=== PATIENT | female | born 1955 | race Two or more races ===

== ENCOUNTER → 2021-09-05 | Outpatient (CLI) | payer MEDICAID | LOC: M WHC 14:20 | PROVIDERS: ATTEND Nurse Practitioner Family | DX: N64.4 Mastodynia (principal) | CPT/HCPCS: 76642; 77066; G0279 ==

== ENCOUNTER → 2021-10-02 | Outpatient (CLI) | payer MEDICAID | LOC: M LAB 14:42 → M RAD 14:42 | PROVIDERS: ATTEND Nurse Practitioner Family | DX: M54.50 Low back pain, unspecified (principal); M25.562 Pain in left knee; M25.511 Pain in right shoulder ==

== ENCOUNTER → 2021-10-27 | Outpatient (CLI) | payer MEDICAID | LOC: M WHC 11:04 | PROVIDERS: ATTEND Nurse Practitioner Family | DX: Z13.820 Encounter for screening for osteoporosis (principal); M85.89 Other specified disorders of bone density and structure, multiple sites ==

== ENCOUNTER 2021-11-20 12:20 | Outpatient (RCR) | payer MEDICAID ==
[2021-12-04] MEDS ORDERED: DICL1GEL3 TOP (11:03)
[2021-12-04] MEDS ORDERED: DOCU100C16 PO (11:03)
[2021-12-04] MEDS ORDERED: ACET-683 PO (11:03)
[2021-12-04] MEDS ORDERED: MELO7.5T35 PO (11:03)
== END 2021-12-01 ==
LOC: M PT 12:20
PROVIDERS: ATTEND Orthopaedic Surgery
DX: M13.862 Other specified arthritis, left knee (principal)

== ENCOUNTER → 2021-12-08 | Outpatient (CLI) | payer MEDICAID ==
[~2021-12-08] MED LIST: ACET-683 PO; DICL1GEL3 TOP; DOCU100C16 PO; MELO7.5T35 PO
[2021-12-08 12:05] LABS: BASO % 0.8 % (0.0-1.0); EOS # 0.1 10^3/uL (0.0-0.5); EOS % 1.6 % (0.0-3.0); HEMATOCRIT 38.1 % (36.0-47.0); LYMPH # 2.3 10^3/uL (1.5-5.0); LYMPH % 46.8 % (24.0-44.0); MEAN CORPUSCULAR HEMOGLOBIN 28.1 pg (27.0-33.0); MEAN CORPUSCULAR HGB CONC 31.5 g/dl (32.0-36.5); MEAN CORPUSCULAR VOLUME 89.2 fl (80.0-96.0); MONO # 0.5 10^3/uL (0.0-0.8); NEUTROPHILS % 40.8 % (36.0-66.0); PLATELET COUNT, AUTOMATED 144 10^3/uL (150-450); RED BLOOD COUNT 4.27 10^6/uL (4.00-5.40); WHITE BLOOD COUNT 4.9 10^3/uL (4.0-10.0)
[2021-12-08 12:52] LABS: ALBUMIN 3.7 GM/DL (3.2-5.2); ALT/SGPT 16 U/L (12-78); BILIRUBIN,TOTAL 0.7 MG/DL (0.2-1.0); BLOOD UREA NITROGEN 16 MG/DL (7-18); CALCIUM LEVEL 9.3 MG/DL (8.8-10.2); CARBON DIOXIDE LEVEL 29 MEQ/L (21-32); CHLORIDE LEVEL 108 MEQ/L (98-107); GLOMERULAR FILTRATION RATE > 60.0 (>45); GLUCOSE, FASTING 96 MG/DL (70-100); POTASSIUM SERUM 4.1 MEQ/L (3.5-5.1); SODIUM LEVEL 141 MEQ/L (136-145); TOTAL PROTEIN 7.2 GM/DL (6.4-8.2)
== END ==
LOC: M EKG 10:59
PROVIDERS: ATTEND Nurse Practitioner Family
DX: Z01.818 Encounter for other preprocedural examination (principal); Z79.899 Other long term (current) drug therapy

== ENCOUNTER → 2021-12-13 | Outpatient (CLI) | payer MEDICAID | LOC: M LABSMTC 10:21 | PROVIDERS: ATTEND Anesthesiology | DX: Z01.812 Encounter for preprocedural laboratory examination (principal); Z11.52 Encounter for screening for COVID-19 ==

== ENCOUNTER 2021-12-18 06:00 | Inpatient (IN) | payer MEDICAID ==
[~2021-12-18] VITALS: Ht 167.6 cm; Wt 104.8 kg
[2021-12-18] VITALS (8 sets, daily range): BP systolic 120–150; BP diastolic 58–71
[~2021-12-18 06:00] MED LIST changes: +ROPIVA 100MG/KETOR 15MG/EPINEPHRINE 0.3MG IN NS 50ML SYRINGE PA ONE; +TRANEXAMIC ACID 100 MG/ML 10ML VIAL IV ONE; +ceFAZolin SOD 2 GM in IV 1 EA IV ONE; +oxyCODONE 5MG TAB PO ONE
[2021-12-18] MEDS ORDERED: LR 1,000 ML IV SCH ×2 (06:35→11:15)
[2021-12-18] MEDS ORDERED: fentaNYL 100 MCG/2 ML INJECTION As Ordered ONE ×2 (07:04→08:16)
[2021-12-18] MEDS ORDERED: MIDAZOLAM INJ 2MG/2ML VIAL (J2250 PER 1MG) As Ordered ONE (07:04)
[2021-12-18] MEDS ORDERED: propofoL 200 MG/20 ML VIAL As Ordered ONE (07:05)
[2021-12-18] MEDS ORDERED: dexameTHASONE 4 MG/ML 1ML VIAL (J1100 PER 1MG) As Ordered ONE (07:05)
[2021-12-18] MEDS ORDERED: LIDOCAINE 2% 100MG/5ML SDV (FOR ANES.) As Ordered ONE (07:05)
[2021-12-18] MEDS ORDERED: ONDANSETRON 4MG 2ML VIAL As Ordered ONE (07:05)
[2021-12-18] MEDS ORDERED: TRANEXAMIC ACID 100 MG/ML 10ML VIAL As Ordered ONE (07:12)
[2021-12-18] MEDS ORDERED: LABETALOL 100MG/20ML VIAL As Ordered ONE ×2 (07:44→08:21)
[2021-12-18] MEDS ORDERED: ACETAMINOPHEN 1000MG 100ML IV BTL (OFIRMEV) (J0131 PER 10MG) As Ordered ONE (08:04)
[2021-12-18] MEDS ORDERED: VANCOMYCIN 1000MG/20ML VIAL As Ordered ONE (08:04)
[2021-12-18] MEDS ORDERED: HYDROmorphone HCL 2MG/ML 1ML VIAL As Ordered ONE (08:19)
[2021-12-18] MEDS ORDERED: SUGAMMADEX SODIUM 500 MG/5 ML VIAL (BRIDION) As Ordered ONE (08:22)
[2021-12-18] MEDS ORDERED: ROCURONIUM BROMIDE 50 MG/5 ML VIAL As Ordered ONE ×2 (08:50→10:16)
[2021-12-18] MEDS ORDERED: ePHEDrine SULFATE 25 MG/5 ML(5MG/ML) SYRINGE As Ordered ONE (09:30)
[2021-12-18] MEDS ORDERED: NS 1,000 ML IV SCH (11:00)
[2021-12-18] MEDS ORDERED: ACETAMINOPHEN TAB 650MG DOSE (2X325MG) PO PRN (11:00)
[2021-12-18] MEDS ORDERED: MORPHINE 4 MG/ML 1ML VIAL/SYRINGE IV PRN (11:00)
[2021-12-18] MEDS ORDERED: ONDANSETRON 4MG 2ML VIAL IV PRN ×2 (11:00→11:15)
[2021-12-18] MEDS ORDERED: oxyCODONE 5MG TAB PO PRN (11:15)
[2021-12-18] MEDS ORDERED: MORPHINE 2 MG/ML 1ML VIAL IV PRN (11:15)
[2021-12-18] MEDS ORDERED: fentaNYL 100 MCG/2 ML INJECTION IV PRN (11:15)
[2021-12-18 12:28] LABS: ALBUMIN 3.2 GM/DL (3.2-5.2); ALT/SGPT 16 U/L (12-78); BILIRUBIN,TOTAL 0.4 MG/DL (0.2-1.0); BLOOD UREA NITROGEN 9 MG/DL (7-18); CALCIUM LEVEL 8.4 MG/DL (8.8-10.2); CARBON DIOXIDE LEVEL 25 MEQ/L (21-32); CHLORIDE LEVEL 107 MEQ/L (98-107); CREATININE FOR GFR 0.89 MG/DL (0.55-1.30); GLOMERULAR FILTRATION RATE > 60.0 (>45); GLUCOSE, FASTING 227 MG/DL (70-100); POTASSIUM SERUM 3.6 MEQ/L (3.5-5.1); SODIUM LEVEL 139 MEQ/L (136-145); TOTAL PROTEIN 6.3 GM/DL (6.4-8.2)
[2021-12-18 13:50] LABS: BASO % 0.2 % (0.0-1.0); HEMATOCRIT 34.3 % (36.0-47.0); HEMOGLOBIN 10.9 g/dl (12.0-15.5); LYMPH # 1.6 10^3/uL (1.5-5.0); LYMPH % 19.9 % (24.0-44.0); MEAN CORPUSCULAR HEMOGLOBIN 28.5 pg (27.0-33.0); MEAN CORPUSCULAR HGB CONC 31.8 g/dl (32.0-36.5); MEAN CORPUSCULAR VOLUME 89.6 fl (80.0-96.0); MONO # 0.2 10^3/uL (0.0-0.8); NEUTROPHILS # 6.2 10^3/uL (1.5-8.5); NEUTROPHILS % 77.7 % (36.0-66.0); PLATELET COUNT, AUTOMATED 151 10^3/uL (150-450); RED BLOOD COUNT 3.83 10^6/uL (4.00-5.40)
[2021-12-18 13:52] LABS: FREE T4 1.58 NG/DL (0.76-1.46); MAGNESIUM LEVEL 1.6 MG/DL (1.8-2.4)
[2021-12-18] MEDS: PERCOCET 5MG/325MG TAB PO PRN (15:38)
[2021-12-18] MEDS: ceFAZolin SOD 2 GM in IV 1 EA IV SCH (15:40)
[2021-12-18] MEDS: RIVAROXABAN 10MG TAB (XARELTO) PO SCH (17:56)
[2021-12-18] MEDS ORDERED: POTASSIUM CHLORIDE 10MEQ SR TABLET PO ONE (20:00)
[2021-12-18 20:54] LABS: PERCENT SATURATION 10.9 % (13.2-45.0)
[2021-12-18] MEDS: MAG SULF 1GM/100ML (MAG RUN) 1 GM in IV 1 EA IV SCH ×2 (21:44→23:04)
[2021-12-19] VITALS (11 sets, daily range): BP systolic 95–143; BP diastolic 47–70
[2021-12-19] MEDS: MAG SULF 1GM/100ML (MAG RUN) 1 GM in IV 1 EA IV SCH (00:12)
[2021-12-19] MEDS: ceFAZolin SOD 2 GM in IV 1 EA IV SCH ×2 (01:32→08:54)
[2021-12-19 06:18] LABS: HEMATOCRIT 29.2 % (36.0-47.0); HEMOGLOBIN 9.6 g/dl (12.0-15.5); MEAN CORPUSCULAR HEMOGLOBIN 29.1 pg (27.0-33.0); MEAN CORPUSCULAR HGB CONC 32.9 g/dl (32.0-36.5); MEAN CORPUSCULAR VOLUME 88.5 fl (80.0-96.0); PLATELET COUNT, AUTOMATED 143 10^3/uL (150-450); WHITE BLOOD COUNT 10.7 10^3/uL (4.0-10.0)
[2021-12-19 06:37] LABS: INR 1.15; PROTHROMBIN TIME 14.9 SECONDS (12.5-14.5)
[2021-12-19 06:50] LABS: ALBUMIN 3.1 GM/DL (3.2-5.2); ALT/SGPT 13 U/L (12-78); BILIRUBIN,TOTAL 0.5 MG/DL (0.2-1.0); BLOOD UREA NITROGEN 11 MG/DL (7-18); CALCIUM LEVEL 8.4 MG/DL (8.8-10.2); CARBON DIOXIDE LEVEL 27 MEQ/L (21-32); CHLORIDE LEVEL 103 MEQ/L (98-107); CREATININE FOR GFR 0.96 MG/DL (0.55-1.30); GLOMERULAR FILTRATION RATE > 60.0 (>45); GLUCOSE, FASTING 160 MG/DL (70-100); PHOSPHORUS LEVEL 3.2 MG/DL (2.5-4.9); SODIUM LEVEL 138 MEQ/L (136-145)
[2021-12-19] MEDS: PERCOCET 5MG/325MG TAB PO PRN ×2 (08:54→17:55)
[2021-12-19] MEDS ORDERED: XARE10TA PO (13:05)
[2021-12-19] MEDS ORDERED: PERCOCET PO (13:05)
[2021-12-19] MEDS ORDERED: ACET1TAB55 PO (13:05)
[2021-12-19] MEDS ORDERED: CELE100C PO (13:12)
[2021-12-19] MEDS: RIVAROXABAN 10MG TAB (XARELTO) PO SCH (17:54)
[2021-12-19] MEDS ORDERED: FERR325T3 PO (18:26)
[2021-12-20] VITALS (12 sets, daily range): BP systolic 98–139; BP diastolic 49–92
[2021-12-20] MEDS ORDERED: CEPHALEXIN 500 MG CAP PO SCH (00:45)
[2021-12-20] MEDS ORDERED: FOSFOMYCIN TROMETHAMINE 3 GM POWDER PACKET (MONUROL) PO ONE ×2 (01:00→02:00)
[2021-12-20] MEDS ORDERED: PHENAZOPYRIDINE 100 MG TAB PO ONE (01:00)
[2021-12-20] MEDS: PERCOCET 5MG/325MG TAB PO PRN ×2 (02:23→10:59)
[2021-12-20 06:51] LABS: HEMATOCRIT 27.5 % (36.0-47.0); MEAN CORPUSCULAR HGB CONC 32.7 g/dl (32.0-36.5); MEAN CORPUSCULAR VOLUME 88.7 fl (80.0-96.0); PLATELET COUNT, AUTOMATED 127 10^3/uL (150-450); WHITE BLOOD COUNT 9.5 10^3/uL (4.0-10.0)
[2021-12-20 07:10] LABS: INR 1.29; PROTHROMBIN TIME 16.3 SECONDS (12.5-14.5)
[2021-12-20 07:36] LABS: ALT/SGPT 12 U/L (12-78); BILIRUBIN,TOTAL 0.7 MG/DL (0.2-1.0); BLOOD UREA NITROGEN 10 MG/DL (7-18); CALCIUM LEVEL 8.3 MG/DL (8.8-10.2); CARBON DIOXIDE LEVEL 28 MEQ/L (21-32); CHLORIDE LEVEL 105 MEQ/L (98-107); CREATININE FOR GFR 0.75 MG/DL (0.55-1.30); GLOMERULAR FILTRATION RATE > 60.0 (>45); GLUCOSE, FASTING 121 MG/DL (70-100); SODIUM LEVEL 138 MEQ/L (136-145); TOTAL PROTEIN 6.2 GM/DL (6.4-8.2)
[2021-12-20] MEDS ORDERED: METOPROLOL 5 MG/5 ML VIAL IV STA (11:43)
[2021-12-20] MEDS: APIXABAN 5 MG TAB (ELIQUIS) PO SCH ×2 (12:19→21:04)
[2021-12-20] MEDS ORDERED: NS 500 ML IV STA (12:21)
[2021-12-20] MEDS ORDERED: NS 500 ML IV ONE (12:25)
[2021-12-20] MEDS: METOPROLOL TART 25 MG TABLET PO SCH ×2 (12:44→21:14)
[2021-12-21] VITALS: BP 111/65
[2021-12-21 04:00] VITALS: BP 111/58
[2021-12-21] MEDS: PERCOCET 5MG/325MG TAB PO PRN (04:01)
[2021-12-21] MEDS: METOPROLOL TART 25 MG TABLET PO SCH (06:00)
[2021-12-21 08:13] VITALS: BP 111/63
[2021-12-21 08:18] VITALS: BP 111/63
[2021-12-21] MEDS: APIXABAN 5 MG TAB (ELIQUIS) PO SCH (08:19)
[2021-12-21] MEDS ORDERED: METOPROLOL TART 25 MG TABLET PO SCH (09:00)
[2021-12-21 09:10] LABS: HEMATOCRIT 27.2 % (36.0-47.0); HEMOGLOBIN 8.7 g/dl (12.0-15.5); MEAN CORPUSCULAR HEMOGLOBIN 28.5 pg (27.0-33.0); MEAN CORPUSCULAR VOLUME 89.2 fl (80.0-96.0); PLATELET COUNT, AUTOMATED 141 10^3/uL (150-450); RED BLOOD COUNT 3.05 10^6/uL (4.00-5.40)
[2021-12-21] MEDS ORDERED: ELIQ5TAB PO (09:25)
[2021-12-21] MEDS ORDERED: METO1TAB87 PO (09:25)
[2021-12-21 09:39] LABS: BLOOD UREA NITROGEN 11 MG/DL (7-18); CALCIUM LEVEL 8.6 MG/DL (8.8-10.2); CARBON DIOXIDE LEVEL 27 MEQ/L (21-32); CHLORIDE LEVEL 106 MEQ/L (98-107); GLOMERULAR FILTRATION RATE > 60.0 (>45); GLUCOSE, FASTING 153 MG/DL (70-100); MAGNESIUM LEVEL 1.8 MG/DL (1.8-2.4); PHOSPHORUS LEVEL 3.1 MG/DL (2.5-4.9); SODIUM LEVEL 138 MEQ/L (136-145)
== END 2021-12-21 13:28 | DRG 302 ==
LOC: M SDC 06:00 → M ED INP 06:01 → M MSPAV 15:18 → OBSVTOIN 12-20 12:23 → M PCU 12-20 14:12
PROVIDERS: ADMIT Orthopaedic Surgery; ATTEND Internal Medicine
PROC: 8E0Y0CZ Robotic Assisted Procedure of Lower Extremity, Open Approach (ICD-10-PCS; 2021-12-18)
PROC: 0SRD0JA Replacement of Left Knee Joint with Synthetic Substitute, Uncemented, Open Approach (ICD-10-PCS; principal; 2021-12-18 07:30)
DX: M17.12 Unilateral primary osteoarthritis, left knee (principal); I48.92 Unspecified atrial flutter; E66.2 Morbid (severe) obesity with alveolar hypoventilation; I48.91 Unspecified atrial fibrillation; D64.9 Anemia, unspecified; R73.03 Prediabetes; I10 Essential (primary) hypertension; N39.0 Urinary tract infection, site not specified; R00.1 Bradycardia, unspecified; Z79.1 Long term (current) use of non-steroidal anti-inflammatories (NSAID); Z79.899 Other long term (current) drug therapy; Z68.37 Body mass index [BMI] 37.0-37.9, adult

== ENCOUNTER 2021-12-19 15:03 | Inpatient (IN) | payer MEDICAID ==
[~2021-12-19] VITALS: Ht 167.6 cm; Wt 109.0 kg
[~2021-12-19 15:03] MED LIST changes: +ACET1TAB55 PO; +CELE100C PO; +PERCOCET PO; -ROPIVA 100MG/KETOR 15MG/EPINEPHRINE 0.3MG IN NS 50ML SYRINGE PA ONE; -TRANEXAMIC ACID 100 MG/ML 10ML VIAL IV ONE; +XARE10TA PO; -ceFAZolin SOD 2 GM in IV 1 EA IV ONE; -oxyCODONE 5MG TAB PO ONE
[2021-12-19] MEDS ORDERED: FERR325T3 PO (18:26)
[2021-12-19] MEDS ORDERED: BISACODYL 10 MG SUPP PR PRN (19:50)
[2021-12-19] MEDS ORDERED: CelecoXIB (CeleBREX) 100 MG CAP PO SCH (21:00)
[2021-12-20] MEDS ORDERED: METOPROLOL 5 MG/5 ML VIAL As Ordered ONE (11:54)
[2021-12-20] MEDS ORDERED: RIVAROXABAN 10MG TAB (XARELTO) PO SCH (18:00)
[2021-12-21] MEDS ORDERED: ELIQ5TAB PO (09:25)
[2021-12-21] MEDS ORDERED: METO1TAB87 PO (09:25)
[2021-12-21 14:00] VITALS: BP 136/74
[2021-12-21] MEDS ORDERED: MIRALAX *UNIT DOSE* 17GM PACKET PO PRN (15:28)
[2021-12-21] MEDS ORDERED: ONDANSETRON 4MG TAB PO PRN (15:28)
[2021-12-21] MEDS ORDERED: oxyCODONE 5MG TAB PO PRN (16:23)
[2021-12-21] MEDS: DOCUSATE SODIUM 100MG CAPSULE PO SCH ×3 (17:39→21:40)
[2021-12-21] MEDS: FERROUS SULFATE 325MG TAB PO SCH (18:03)
[2021-12-21] MEDS: ACETAMINOPHEN 500 MG TAB PO SCH ×2 (18:04→21:39)
[2021-12-21] MEDS: PANTOPRAZOLE 40MG TAB (PROTONIX) PO SCH (18:04)
[2021-12-21 20:00] VITALS: BP 136/84
[2021-12-21] MEDS: SENNA 8.6 MG TAB (SENOKOT) PO SCH (21:00)
[2021-12-21] MEDS: APIXABAN 5 MG TAB (ELIQUIS) PO SCH (21:39)
[2021-12-21] MEDS ORDERED: HOME MED LIST COMPLETE! XX SCH (21:55)
[2021-12-22 06:00] VITALS: BP 133/63
[2021-12-22] MEDS: PANTOPRAZOLE 40MG TAB (PROTONIX) PO SCH (09:24)
[2021-12-22] MEDS: FERROUS SULFATE 325MG TAB PO SCH (09:25)
[2021-12-22] MEDS: METOPROLOL TART 25 MG TABLET PO SCH (09:25)
[2021-12-22] MEDS: ACETAMINOPHEN 500 MG TAB PO SCH ×3 (09:26→20:05)
[2021-12-22] MEDS: APIXABAN 5 MG TAB (ELIQUIS) PO SCH ×2 (09:26→20:05)
[2021-12-22] MEDS: DOCUSATE SODIUM 100MG CAPSULE PO SCH ×2 (09:26→20:05)
[2021-12-22 12:45] LABS: BASO % 0.2 % (0.0-1.0); EOS % 0.4 % (0.0-3.0); HEMOGLOBIN 9.1 g/dl (12.0-15.5); LYMPH # 2.4 10^3/uL (1.5-5.0); LYMPH % 28.6 % (24.0-44.0); MEAN CORPUSCULAR HEMOGLOBIN 28.3 pg (27.0-33.0); MEAN CORPUSCULAR HGB CONC 31.4 g/dl (32.0-36.5); MEAN CORPUSCULAR VOLUME 90.3 fl (80.0-96.0); MONO # 0.9 10^3/uL (0.0-0.8); MONO % 10.7 % (2.0-8.0); NEUTROPHILS # 4.9 10^3/uL (1.5-8.5); NEUTROPHILS % 59.7 % (36.0-66.0); PLATELET COUNT, AUTOMATED 197 10^3/uL (150-450); RED BLOOD COUNT 3.21 10^6/uL (4.00-5.40); WHITE BLOOD COUNT 8.2 10^3/uL (4.0-10.0)
[2021-12-22 13:20] LABS: BLOOD UREA NITROGEN 10 MG/DL (7-18); CALCIUM LEVEL 8.6 MG/DL (8.8-10.2); CARBON DIOXIDE LEVEL 26 MEQ/L (21-32); CHLORIDE LEVEL 106 MEQ/L (98-107); CREATININE FOR GFR 0.74 MG/DL (0.55-1.30); GLOMERULAR FILTRATION RATE > 60.0 (>45); GLUCOSE, FASTING 121 MG/DL (70-100); POTASSIUM SERUM 3.9 MEQ/L (3.5-5.1); SODIUM LEVEL 138 MEQ/L (136-145)
[2021-12-22 14:00] VITALS: BP 120/67
[2021-12-22 20:00] VITALS: BP 140/80
[2021-12-22] MEDS: SENNA 8.6 MG TAB (SENOKOT) PO SCH (20:05)
[2021-12-23 06:00] VITALS: BP 140/84
[2021-12-23] MEDS: ACETAMINOPHEN 500 MG TAB PO SCH ×3 (06:16→20:31)
[2021-12-23] MEDS: FERROUS SULFATE 325MG TAB PO SCH (07:43)
[2021-12-23] MEDS: APIXABAN 5 MG TAB (ELIQUIS) PO SCH ×2 (07:43→20:31)
[2021-12-23] MEDS: METOPROLOL TART 25 MG TABLET PO SCH (07:43)
[2021-12-23] MEDS: PANTOPRAZOLE 40MG TAB (PROTONIX) PO SCH (07:43)
[2021-12-23] MEDS: DOCUSATE SODIUM 100MG CAPSULE PO SCH ×2 (07:43→20:31)
[2021-12-23 14:00] VITALS: BP 144/94
[2021-12-23 20:00] VITALS: BP 150/88
[2021-12-23] MEDS: SENNA 8.6 MG TAB (SENOKOT) PO SCH (20:31)
[2021-12-24 06:00] VITALS: BP 138/82
[2021-12-24] MEDS: DOCUSATE SODIUM 100MG CAPSULE PO SCH ×2 (08:31→20:09)
[2021-12-24] MEDS: APIXABAN 5 MG TAB (ELIQUIS) PO SCH ×2 (08:31→21:39)
[2021-12-24] MEDS: FERROUS SULFATE 325MG TAB PO SCH (08:31)
[2021-12-24] MEDS: PANTOPRAZOLE 40MG TAB (PROTONIX) PO SCH (08:32)
[2021-12-24] MEDS: METOPROLOL TART 25 MG TABLET PO SCH (08:32)
[2021-12-24] MEDS: ACETAMINOPHEN 500 MG TAB PO SCH ×3 (08:32→21:39)
[2021-12-24 14:00] VITALS: BP 134/83
[2021-12-24 20:00] VITALS: BP 148/82
[2021-12-24] MEDS: SENNA 8.6 MG TAB (SENOKOT) PO SCH (20:09)
[2021-12-25 06:00] VITALS: BP 142/67
[2021-12-25 07:08] LABS: BASO % 0.6 % (0.0-1.0); EOS # 0.1 10^3/uL (0.0-0.5); EOS % 1.7 % (0.0-3.0); HEMATOCRIT 28.3 % (36.0-47.0); HEMOGLOBIN 8.9 g/dl (12.0-15.5); LYMPH # 2.4 10^3/uL (1.5-5.0); LYMPH % 36.7 % (24.0-44.0); MEAN CORPUSCULAR HEMOGLOBIN 28.1 pg (27.0-33.0); MEAN CORPUSCULAR HGB CONC 31.4 g/dl (32.0-36.5); MEAN CORPUSCULAR VOLUME 89.3 fl (80.0-96.0); MONO # 0.5 10^3/uL (0.0-0.8); MONO % 7.6 % (2.0-8.0); NEUTROPHILS # 3.4 10^3/uL (1.5-8.5); NEUTROPHILS % 53.1 % (36.0-66.0); PLATELET COUNT, AUTOMATED 272 10^3/uL (150-450); RED BLOOD COUNT 3.17 10^6/uL (4.00-5.40); WHITE BLOOD COUNT 6.5 10^3/uL (4.0-10.0)
[2021-12-25 07:48] LABS: BLOOD UREA NITROGEN 17 MG/DL (7-18); CALCIUM LEVEL 9.1 MG/DL (8.8-10.2); CARBON DIOXIDE LEVEL 27 MEQ/L (21-32); CHLORIDE LEVEL 106 MEQ/L (98-107); CREATININE FOR GFR 0.82 MG/DL (0.55-1.30); GLOMERULAR FILTRATION RATE > 60.0 (>45); GLUCOSE, FASTING 121 MG/DL (70-100); POTASSIUM SERUM 4.1 MEQ/L (3.5-5.1); SODIUM LEVEL 139 MEQ/L (136-145)
[2021-12-25] MEDS: DOCUSATE SODIUM 100MG CAPSULE PO SCH ×2 (09:00→21:00)
[2021-12-25] MEDS: FERROUS SULFATE 325MG TAB PO SCH (09:13)
[2021-12-25] MEDS: APIXABAN 5 MG TAB (ELIQUIS) PO SCH ×2 (09:13→20:53)
[2021-12-25] MEDS: METOPROLOL TART 25 MG TABLET PO SCH (09:13)
[2021-12-25] MEDS: PANTOPRAZOLE 40MG TAB (PROTONIX) PO SCH (09:13)
[2021-12-25] MEDS: ACETAMINOPHEN 500 MG TAB PO SCH ×3 (09:13→20:53)
[2021-12-25] MEDS: amLODIPine 5 MG TAB PO SCH (09:14)
[2021-12-25 14:22] VITALS: BP 135/71
[2021-12-25 20:00] VITALS: BP 152/88
[2021-12-25] MEDS: SENNA 8.6 MG TAB (SENOKOT) PO SCH (21:00)
[2021-12-26 06:00] VITALS: BP 112/70
[2021-12-26] MEDS: DOCUSATE SODIUM 100MG CAPSULE PO SCH ×2 (09:00→21:00)
[2021-12-26] MEDS: APIXABAN 5 MG TAB (ELIQUIS) PO SCH ×2 (09:06→21:04)
[2021-12-26] MEDS: METOPROLOL TART 25 MG TABLET PO SCH (09:06)
[2021-12-26] MEDS: PANTOPRAZOLE 40MG TAB (PROTONIX) PO SCH (09:07)
[2021-12-26] MEDS: FERROUS SULFATE 325MG TAB PO SCH (09:07)
[2021-12-26] MEDS: ACETAMINOPHEN 500 MG TAB PO SCH ×3 (09:07→21:03)
[2021-12-26] MEDS: amLODIPine 5 MG TAB PO SCH (09:07)
[2021-12-26 14:00] VITALS: BP 112/72
[2021-12-26 20:00] VITALS: BP 140/81
[2021-12-26] MEDS: SENNA 8.6 MG TAB (SENOKOT) PO SCH (21:00)
[2021-12-27 05:32] VITALS: BP_SYST 129; BP_SYST 135; BP_DIAS 71; BP_DIAS 76
[2021-12-27] MEDS: ACETAMINOPHEN 500 MG TAB PO SCH (08:30)
[2021-12-27] MEDS: FERROUS SULFATE 325MG TAB PO SCH (08:30)
[2021-12-27] MEDS: APIXABAN 5 MG TAB (ELIQUIS) PO SCH (08:30)
[2021-12-27] MEDS: METOPROLOL TART 25 MG TABLET PO SCH (08:30)
[2021-12-27] MEDS: PANTOPRAZOLE 40MG TAB (PROTONIX) PO SCH (08:30)
[2021-12-27 08:31] VITALS: BP 129/71
[2021-12-27] MEDS: DOCUSATE SODIUM 100MG CAPSULE PO SCH (08:31)
[2021-12-27] MEDS: amLODIPine 5 MG TAB PO SCH (08:31)
[2021-12-27] MEDS ORDERED: FERR325T3 PO (10:43)
[2021-12-27] MEDS ORDERED: ELIQ5TAB PO (10:43)
[2021-12-27] MEDS ORDERED: AMLO1TAB24 PO (10:43)
[2021-12-27] MEDS ORDERED: METO1TAB87 PO (10:43)
== END 2021-12-27 12:20 | disposition home or self-care (01) | DRG 862 ==
LOC: M PM&R 12-21 13:45
PROVIDERS: ADMIT Physical Medicine & Rehabilitation; ATTEND Physical Medicine & Rehabilitation
DX: Z47.1 Aftercare following joint replacement surgery (principal); I48.91 Unspecified atrial fibrillation; D64.9 Anemia, unspecified; N39.0 Urinary tract infection, site not specified; R73.03 Prediabetes; E66.9 Obesity, unspecified; R26.89 Other abnormalities of gait and mobility; Z79.01 Long term (current) use of anticoagulants; Z79.899 Other long term (current) drug therapy; Z96.652 Presence of left artificial knee joint; Z74.09 Other reduced mobility; Z68.38 Body mass index [BMI] 38.0-38.9, adult

== ENCOUNTER → 2021-12-29 | Outpatient (CLI) | payer MEDICAID ==
[~2021-12-29] MED LIST changes: +AMLO1TAB24 PO; +ELIQ5TAB PO; +FERR325T3 PO; +METO1TAB87 PO
== END ==
LOC: M SOG 07:49
PROVIDERS: ATTEND Orthopaedic Surgery
DX: M17.12 Unilateral primary osteoarthritis, left knee (principal); M21.162 Varus deformity, not elsewhere classified, left knee; Z96.652 Presence of left artificial knee joint

== ENCOUNTER → 2022-01-02 | Outpatient (CLI) | payer MEDICAID | LOC: M SOG 14:01 | PROVIDERS: ATTEND Orthopaedic Surgery | DX: Z47.89 Encounter for other orthopedic aftercare (principal); Z96.652 Presence of left artificial knee joint ==

== ENCOUNTER → 2022-01-31 | Outpatient (RCR) | payer MEDICAID | LOC: M PT 01-05 13:17 | PROVIDERS: ATTEND Physical Medicine & Rehabilitation | DX: R26.9 Unspecified abnormalities of gait and mobility (principal); Z96.652 Presence of left artificial knee joint ==

== ENCOUNTER → 2022-02-27 | Outpatient (CLI) | payer MEDICAID | LOC: M SOG 11:14 | PROVIDERS: ATTEND Orthopaedic Surgery | DX: Z47.1 Aftercare following joint replacement surgery (principal) ==

== ENCOUNTER 2022-03-01 07:46 | Outpatient (RCR) | payer MEDICAID | END 2022-03-03 | LOC: M PT 07:46 | PROVIDERS: ATTEND Physical Medicine & Rehabilitation | DX: R26.9 Unspecified abnormalities of gait and mobility (principal) ==

== ENCOUNTER → 2022-03-08 | Outpatient (REF) | payer MEDICAID ==
[2022-03-08 17:11] LABS: BASO % 0.6 % (0.0-1.0); EOS # 0.1 10^3/uL (0.0-0.5); EOS % 1.2 % (0.0-3.0); HEMATOCRIT 38.3 % (36.0-47.0); HEMOGLOBIN 12.1 g/dl (12.0-15.5); LYMPH # 2.2 10^3/uL (1.5-5.0); LYMPH % 43.6 % (24.0-44.0); MEAN CORPUSCULAR HEMOGLOBIN 27.8 pg (27.0-33.0); MEAN CORPUSCULAR HGB CONC 31.6 g/dl (32.0-36.5); MEAN CORPUSCULAR VOLUME 87.8 fl (80.0-96.0); MONO # 0.5 10^3/uL (0.0-0.8); MONO % 9.8 % (2.0-8.0); NEUTROPHILS # 2.3 10^3/uL (1.5-8.5); NEUTROPHILS % 44.6 % (36.0-66.0); PLATELET COUNT, AUTOMATED 196 10^3/uL (150-450); RED BLOOD COUNT 4.36 10^6/uL (4.00-5.40); WHITE BLOOD COUNT 5.1 10^3/uL (4.0-10.0)
[2022-03-08 17:27] LABS: TOTAL IRON BINDING CAPACITY 329 UG/DL (250-425)
[2022-03-08 17:28] LABS: ALBUMIN 3.8 G/DL (3.2-5.2); ALKALINE PHOSPHATASE 98 U/L (46-116); ALT/SGPT 11 U/L (7.0-40); AST/SGOT 17 U/L (<34); BILIRUBIN,TOTAL 0.4 MG/DL (0.3-1.2); BLOOD UREA NITROGEN 17 MG/DL (9-23); CALCIUM LEVEL 9.9 MG/DL (8.3-10.6); CARBON DIOXIDE LEVEL 28 MMOL/L (20-31); CHLORIDE LEVEL 103 MMOL/L (98-107); CHOLESTEROL LEVEL 193 MG/DL (<200); CREATININE FOR GFR 0.94 MG/DL (0.55-1.30); GLOMERULAR FILTRATION RATE > 60.0 (>45); GLUCOSE, FASTING 88 MG/DL (74-106); HDL CHOLESTEROL 53.5 MG/DL (>40); IRON (FE) 74 UG/DL (50-170); LDL CHOLESTEROL 119.1 MG/DL (<100); NON-HDL-C 140 MG/DL; PERCENT SATURATION 22.5 % (13.2-45.0); POTASSIUM SERUM 4.8 MMOL/L (3.5-5.1); SODIUM LEVEL 141 MMOL/L (136-145); TOTAL PROTEIN 7.6 G/DL (5.7-8.2); TRIGLYCERIDES LEVEL 102 MG/DL (<150)
[2022-03-08 17:30] LABS: TOTAL 25(OH) VITAMIN D 33.8 NG/ML (20.0-100.0)
[2022-03-08 17:55] LABS: HEMOGLOBIN A1c 5.5 % (4.0-6.0)
== END ==
LOC: M LAB REF 16:36
PROVIDERS: ATTEND Nurse Practitioner Family
DX: Z13.228 Encounter for screening for other metabolic disorders (principal); R73.03 Prediabetes; E61.1 Iron deficiency

== ENCOUNTER 2022-03-26 07:42 | Outpatient (RCR) | payer MEDICAID | END 2022-04-03 | LOC: M PT 07:42 | PROVIDERS: ATTEND Physical Medicine & Rehabilitation | DX: R26.89 Other abnormalities of gait and mobility (principal) ==

== ENCOUNTER 2022-06-12 09:53 | Emergency (ER) | payer MEDICAID, MEDICARE, OTHER ==
[~2022-06-12] VITALS: Ht 165.1 cm; Wt 110.6 kg
[2022-06-12] MEDS ORDERED: BACT800T5 PO (11:08)
[2022-06-12 11:32] VITALS: BP 153/83
== END 2022-06-12 11:34 | disposition home or self-care (01) ==
LOC: M ED 09:53
DX: L03.312 Cellulitis of back [any part except buttock and flank] (principal); Z79.899 Other long term (current) drug therapy; Z79.01 Long term (current) use of anticoagulants